=== PATIENT | female | born 1985 | race Caucasian/White ===

== ENCOUNTER 2017-03-30 01:31 | Emergency (ER) | payer OTHER ==
[2017-03-30 01:36] VITALS: BP 127/85
--- NOTE | 2017-03-30 01:47 | ER Document Report ---
ED Hand/Wrist Injury - General Chief Complaint: Hand Pain Stated Complaint: POSSIBLE BROKEN FINGER TRAVEL OUTSIDE OF THE [place] IN LAST 30 DAYS: No - Related Data Allergies/Adverse Reactions: No Known Allergies Allergy (Verified 04/30/14 02:52) Past Medical History - Social History Family History: Arthritis, CAD, CVA, DM, Hyperlipidemia, Hypertension, Thyroid Disfunction Patient has suicidal ideation: No Patient has homicidal ideation: No Pulmonary Medical History: Reports: Hx Bronchitis Renal/ Medical History: Denies: Hx Peritoneal Dialysis Psychiatric Medical History: Reports: Hx Anxiety, Hx Attention Deficit Hyperactivity Disorder, Hx Depression - and anxiety Past Surgical History: Reports: Hx Oral Surgery - TMJ - Immunizations Immunizations up to date: Yes Hx Diphtheria, Pertussis, Tetanus Vaccination: Yes Physical Exam - Vital signs Vitals: Temp Pulse Resp BP Pulse Ox 98.1 F 91 20 127/85 H 97 03/30/17 01:34 03/30/17 01:34 03/30/17 01:34 03/30/17 01:34 03/30/17 01:34 Course - Vital Signs Vital signs: Temp Pulse Resp BP Pulse Ox 98.1 F 91 20 127/85 H 97 03/30/17 01:34 03/30/17 01:34 03/30/17 01:34 03/30/17 01:34 03/30/17 01:34
--- NOTE | 2017-03-30 02:14 | RADIOLOGY REPORT (SQ) ---
EXAM DESCRIPTION: HAND RIGHT 3 VIEWS COMPLETED DATE/TIME: 03/30/2017 1:48 am REASON FOR STUDY: pain . Shut hand in car door. Pain at the 1st and 2nd digits distal phalanges. COMPARISON: Right hand x-ray 02/22/2011. EXAM PARAMETERS: NUMBER OF VIEWS: Three views. TECHNIQUE: AP, lateral and oblique radiographic images acquired of the right hand. LIMITATIONS: None. FINDINGS: MINERALIZATION: Normal. BONES: There is a nondisplaced fracture at the tuft of the 1st distal phalanx. There is a nondispla kelly fracture at the volar plate of the 2nd distal phalanx extending into the interphalangeal joint. Well corticated calcification at the ulnar styloid, probably due to prior trauma or SOFT TISSUES: No significant soft tissue swelling. No radiopaque foreign body. IMPRESSION: Nondisplaced fracture at the tuft of the 1st distal phalanx. Nondisplaced intra-articular fracture at the volar plate of the 2nd distal phalanx. TECHNICAL DOCUMENTATION: JOB ID: [id number] 2010 [employer]- All Rights Reserved
--- NOTE | 2017-03-30 02:19 | ER Document Report ---
Doctor's Note Notes: 03/30/17 02:19 I went to see the patient when she returned from x-ray, she was running down the hallway and out the door into the ambulance bay and never returned.
== END 2017-03-30 01:48 | disposition left against medical advice (07) ==
LOC: ER 01:31
DX: Z53.21 Procedure and treatment not carried out due to patient leaving prior to being seen by health care provider (principal)

== ENCOUNTER 2017-05-19 07:32 | Emergency (ER) | payer OTHER ==
[2017-05-19] MEDS ORDERED: IBUPROFEN 600 MG TABLET PO ONE (07:58)
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
[2017-05-19 09:25] VITALS: BP 130/79
== END 2017-05-19 09:24 | disposition home or self-care (01) ==
LOC: ER 07:32
DX: S00.83XA Contusion of other part of head, initial encounter (principal); F90.9 Attention-deficit hyperactivity disorder, unspecified type; F32.9 Major depressive disorder, single episode, unspecified; R22.0 Localized swelling, mass and lump, head; Y09 Assault by unspecified means
CPT/HCPCS: 70486; 99284

== ENCOUNTER 2018-05-03 08:08 | Emergency (ER) | payer OTHER ==
[2018-05-03 08:16] VITALS: BP 122/76
--- NOTE | 2018-05-03 08:42 | ER Document Report ---
ED General - General Chief Complaint: Cough Stated Complaint: COUGH Time Seen by Provider: 05/03/18 08:23 Notes: 32-year-old female patient emergency department chief complaint of cough and hand redness and swelling. Patient has seen a tool room gear machine operator for she gets recurrent blisters and redness and swelling of her bilateral palms. No involvement of her feet. 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 She now uses nitro gloves and has been using clobetasol cream but does not seem to be helping. There are multiple cracks and breaks in the hands. She was told by the tool room gear machine operator that she has eczema on her hands. She also states that she quit smoking 2 weeks ago and now is coughing a lot. No fever or chills. TRAVEL OUTSIDE OF THE [place] IN LAST 30 DAYS: No - Related Data Allergies/Adverse Reactions: No Known Allergies Allergy (Verified 05/03/18 08:14) Past Medical History - General Information source: Patient - Social History Smoking Status: Former Smoker Chew tobacco use (# tins/day): No Frequency of alcohol use: None Drug Abuse: None Lives with: Family Family History: Arthritis, CAD, CVA, DM, Hyperlipidemia, Hypertension, Thyroid Disfunction Patient has suicidal ideation: No Patient has homicidal ideation: No Pulmonary Medical History: Reports: Hx Bronchitis Renal/ Medical History: Denies: Hx Peritoneal Dialysis Psychiatric Medical History: Reports: Hx Anxiety, Hx Attention Deficit Hyperactivity Disorder, Hx Depression - and anxiety Past Surgical History: Reports: Hx Oral Surgery - TMJ - Immunizations Immunizations up to date: Yes Hx Diphtheria, Pertussis, Tetanus Vaccination: Yes Review of Systems - Review of Systems Notes: Constitutional: denies: Chills, Diaphoresis, Fever, Malaise, Weakness EENT: denies: Eye discharge, Blurred vision, Tearing, Double vision, Nose congestion, Nose discharge, Throat swelling, Mouth pain Cardiovascular: denies: Palpitations, Heart racing, Orthopnea, Dyspnea, Chest pain Respiratory: Complaining of intermittent cough. Intermittent wheeze. No significant shortness of breath. Gastrointestinal: denies: Abdominal pain, Diarrhea, Nausea, Vomiting, Black stools, bright red blood in stool Genitourinary: denies: Burning, Dysuria, Discharge, Frequency, Flank pain, Hematuria Musculoskeletal: denies: Joint pain, Joint swelling, Muscle pain, Muscle stiffness, back pain Hematologic/Lymphatic: denies: Anemia, Easy bleeding, Easy bruising, Blood clots Neurological/Psychological: denies: Confusion, Dementia, Depression, Loss of consciousness Skin: Complaining of redness swelling and blisters on her hands. Physical Exam - Vital signs Vitals: Temp Pulse Resp BP Pulse Ox 97.5 F 75 16 122/76 97 05/03/18 08:15 05/03/18 08:15 05/03/18 08:15 05/03/18 08:15 05/03/18 08:15 Interpretation: Normal - General General appearance: Appears well, Alert - HEENT Head: Normocephalic, Atraumatic Eyes: Normal Pupils: PERRL - Respiratory Respiratory status: No respiratory distress Chest status: Nontender Breath sounds: Normal Chest palpation: Normal - Cardiovascular Rhythm: Regular Heart sounds: Normal auscultation Murmur: No - Abdominal Inspection: Normal Distension: No distension Bowel sounds: Normal Tenderness: Nontender Organomegaly: No organomegaly - Extremities General upper extremity: Normal inspection, Nontender, Normal color, Normal ROM , Normal temperature General lower extremity: Other - The bilateral hands are red. There are multiple areas that are cracked and swollen. There are a few small more scar appearing spots on the palms and fingers. Mild warm to the touch.. No: Rigo' s sign Course - Re-evaluation Re-evalutation: 05/03/18 08:47 At this time patient's lungs are clear. States that she has recently stopped smoking and she is about 2 weeks out. Has had increased coughing since stopping smoking. More than likely this represents return of function of the bronchial ciliary function I have explained this to the patient as well. It is highly possible to that she is developing some contact dermatitis from the use of her gloves. I have advised her to try some vinyl gloves instead of nitrile. To avoid latex as well. The hands are extremely red and swollen. I am going to start her on some mupirocin topical as well as some steroid topical but I am concerned that she could have a superimposed fungal infection as well. I would like to start her on some Diflucan. I have explained to her that we will need to decrease her dose of Abilify while on Diflucan and I have advised her about the risk involved in taking Diflucan especially with regards to liver function studies. In the event she develops any right upper quadrant pain she is to return for liver function studies. She has never had any problems with her liver so I am not doing initial labs on her at this time. Patient accepts the risks involved in this treatment. - Vital Signs Vital signs: Temp Pulse Resp BP Pulse Ox 97.5 F 75 16 122/76 97 05/03/18 08:15 05/03/18 08:15 05/03/18 08:15 05/03/18 08:15 05/03/18 08:15 Discharge - Discharge Clinical Impression: Bronchitis Atopic dermatitis, unspecified Qualifiers: Atopic dermatitis type: unspecified Qualified Code(s): L20.9 - Atopic dermatitis, unspecified Condition: Good Disposition: HOME, SELF-CARE Instructions: Atopic Dermatitis (Eczema) ([facility]), Cough Suppressant & Expectorant Medications Additional Instructions: We are going to try you on some different medications for your hands. Avoid using the nitrile gloves and see if this will help. If you decide to start the Diflucan it will be very important that you decrease your Abilify dose by one half as the Diflucan can affect the way that the Abilify is metabolized. In the event that you are developing any worsening mental health symptoms you should stop the Diflucan and restart your Abilify in your normal dosage. Use the ointments as prescribed. In the event it that your symptoms are getting worse please return. If you develop any right upper quadrant pain please stop the Diflucan and be reevaluated as she may need to have your labs checked. Prescriptions: Triamcinolone Acetonide 1 applic TP QHS 10 Days #1 oint...g. Albuterol Sulfate [Ventolin HFA MDI 18 GM] 2 puff IH Q6H PRN #1 mdi PRN Reason: Fluconazole [Diflucan] 150 mg PO DAILY 14 Days #14 tablet Mupirocin [Bactroban 2% Ointment 22 gm] 1 applic TP BID 10 Days #1 tube Forms: Return to Work
== END 2018-05-03 09:14 | disposition home or self-care (01) ==
LOC: ER 08:08
DX: J40 Bronchitis, not specified as acute or chronic (principal); L20.9 Atopic dermatitis, unspecified; R05 Cough; R06.2 Wheezing; Z87.891 Personal history of nicotine dependence
CPT/HCPCS: 99283

== ENCOUNTER 2018-12-18 18:17 | Emergency (ER) | payer OTHER ==
--- NOTE | 2018-12-18 19:19 | ER Document Report ---
ED General - General Chief Complaint: Flu Symptoms Stated Complaint: FLU LIKE SYMPTOMS Time Seen by Provider: 12/18/18 19:01 Mode of Arrival: Ambulatory Information source: Patient TRAVEL OUTSIDE OF THE [place] IN LAST 30 DAYS: No - HPI Patient complains to provider of: Productive cough, body aches, fever and chills Onset: Other - Cough started 2 days ago. Fever and body aches started today. Onset/Duration: Sudden Quality of pain: Achy Severity: Severe Pain Level: 4 Associated symptoms: Body/muscle aches, Fever Exacerbated by: Denies Relieved by: Denies Similar symptoms previously: No Recently seen / treated by doctor: No Notes: 33-year-old female coming in today with productive cough that started 2 days ago. Today she is got fevers, chills, body aches, and malaise. Some nausea without vomiting. Child is at home coughing and has been treated with antibiotics for possible strep throat. - Related Data Allergies/Adverse Reactions: No Known Allergies Allergy (Verified 12/18/18 18:17) Past Medical History - General Information source: Patient - Social History Smoking Status: Current Every Day Smoker Family History: Reviewed & Not Pertinent, Arthritis, CAD, CVA, DM, Hyperlipidemia, Hypertension, Thyroid Disfunction Patient has suicidal ideation: No Patient has homicidal ideation: No Pulmonary Medical History: Reports: Hx Bronchitis Renal/ Medical History: Denies: Hx Peritoneal Dialysis Psychiatric Medical History: Reports: Hx Anxiety, Hx Attention Deficit Hyperactivity Disorder, Hx Depression - and anxiety Past Surgical History: Reports: Hx Oral Surgery - TMJ - Immunizations Immunizations up to date: Yes Hx Diphtheria, Pertussis, Tetanus Vaccination: Yes Review of Systems - Review of Systems Notes: Constitutional: Positive for fevers, chills, and malaise EENT: No eye redness. No eye pain. No ear pain. No sore throat. Cardiovascular: No chest pain. No palpitations. Respiratory: Positive for productive cough. No shortness of breath. No respiratory distress. Gastrointestinal: No abdominal pain. No nausea, vomiting, or diarrhea. Genitourinary: Atraumatic. No lesions. No pain. No discharge. Musculoskeletal: Atraumatic. No swelling. No deformities. Skin: No rash or lesions. Lymphatic: No swollen lymph nodes. Neurologic: No headache. No syncope. Psychiatric: No suicidal or homicidal ideation. Physical Exam - Vital signs Vitals: Temp Pulse Resp BP Pulse Ox 100.2 F 99 24 H 133/78 H 97 12/18/18 18:25 12/18/18 18:25 12/18/18 18:25 12/18/18 18:25 12/18/18 18:25 - Notes Notes: General: Well-developed, well-nourished. In no acute distress. Non-toxic appearing. Cardiac: Well-perfused. Regular rate and rhythm. No murmurs, rubs, or gallops. Pulmonary: No respiratory distress. No cyanosis. Bilateral lung pinzon are clear to auscultation. Abdominal: Non-distended. Non-rigid. Bowels sounds are present in all four quadrants. No guarding or rebound. HEENT: Head is atraumatic. Conjunctivae not reddened. No tearing. PERRL. EOMI. Orbits atraumatic. No periorbital swelling or erythema. Oropharynx is without erythema, swelling, or exudates. Neck: Supple. No adenopathy. No meningismus. Dermatologic: Warm with good turgor. No rash. Atraumatic. Chest: Atraumatic. No chest wall tenderness to palpation. Musculoskeletal: Moves all extremities well. No range of motion deficits. no muscular or joint tenderness. No paraspinal muscle tenderness. no midline spinal tenderness or step-off. Genitourinary: Examination deferred Neurologic: No gross neurologic deficits. Psychiatric: Normal mood. Course - Re-evaluation Re-evalutation: 12/18/18 19:19 Patient states that she did receive a flu shot this year. 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 She is wants to make sure she is not testing positive for the flu given her exposure. 12/18/18 20:09 Flu test is positive. Will put her on Tamiflu as requested. We will keep her out of the healthcare setting for the next 5 days at least until her fever has abated - Vital Signs Vital signs: Temp Pulse Resp BP Pulse Ox 100.2 F 99 24 H 133/78 H 97 12/18/18 18:25 12/18/18 18:25 12/18/18 18:25 12/18/18 18:25 12/18/18 18:25 Discharge - Discharge Clinical Impression: Influenza A Condition: Good Instructions: Influenza ([facility]) Additional Instructions: Take Tamiflu as directed for full 5 days. Ibuprofen and Tylenol as needed for fevers. Drink plenty fluids. Get plenty rest. We will keep you out of work for at least the next 5 days while you are under therapy. Your work may wish to keep you way until the fevers have resolved. Prescriptions: Oseltamivir Phosphate [Tamiflu 75 mg Capsule] 75 mg PO BID #10 capsule Forms: Return to Work Referrals: primary care doctor, your [Other] - Follow up as needed
[2018-12-18 19:59] LABS: A TYPE INFLUENZA AG POSITIVE (NEGATIVE); B INFLUENZA AG NEGATIVE (NEGATIVE)
[2018-12-18 20:17] VITALS: BP 114/71
== END 2018-12-18 20:25 | disposition home or self-care (01) ==
LOC: ER 18:17
DX: J10.1 Influenza due to other identified influenza virus with other respiratory manifestations (principal); R05 Cough; R50.9 Fever, unspecified; M79.10 Myalgia, unspecified site; R53.81 Other malaise; R11.0 Nausea; F17.200 Nicotine dependence, unspecified, uncomplicated
CPT/HCPCS: 87804; 99283

== ENCOUNTER 2019-09-11 13:58 | Emergency (ER) | payer BC, OTHER ==
[2019-09-11] MEDS ORDERED: ONDANSETRON 4 MG TAB.RAPDIS PO ONE (14:29)
--- NOTE | 2019-09-11 14:30 | ER Document Report ---
ED Medical Screen (RME) - General Chief Complaint: Nausea/Vomiting Stated Complaint: VOMITING Time Seen by Provider: 09/11/19 14:27 Mode of Arrival: Ambulatory Information source: Patient Notes: 33-year-old female presents emergency department with reports of vomiting approximately 5 times today her stomach feels upset she does not feel good. Reports she did receive the flu vaccine this year. She also reports she received a flu vaccine last year and still ended up with the flu. Denies fever. Denies diarrhea. Denies pain with void. I have greeted and performed a rapid initial assessment of this patient. A comprehensive ED assessment and evaluation of the patient, analysis of test results and completion of the medical decision making process will be conducted by additional ED providers. TRAVEL OUTSIDE OF THE [place] IN LAST 30 DAYS: No - Related Data Allergies/Adverse Reactions: No Known Allergies Allergy (Verified 12/18/18 18:17) Past Medical History Pulmonary Medical History: Reports: Hx Bronchitis Renal/ Medical History: Denies: Hx Peritoneal Dialysis Psychiatric Medical History: Reports: Hx Anxiety, Hx Attention Deficit Hyperactivity Disorder, Hx Depression - and anxiety Past Surgical History: Reports: Hx Oral Surgery - TMJ - Immunizations Immunizations up to date: Yes Hx Diphtheria, Pertussis, Tetanus Vaccination: Yes Physical Exam - Vital signs Vitals: Temp Pulse Resp BP Pulse Ox 98.3 F 76 16 131/80 H 97 09/11/19 14:03 09/11/19 14:03 09/11/19 14:03 09/11/19 14:03 09/11/19 14:03 Course - Vital Signs Vital signs: Temp Pulse Resp BP Pulse Ox 98.3 F 76 16 131/80 H 97 09/11/19 14:03 09/11/19 14:03 09/11/19 14:03 09/11/19 14:03 09/11/19 14:03
[2019-09-11 15:39] LABS: ABSOLUTE BASOPHILS # (AUTO) 0.1 10^3/uL (0.0-0.2); ABSOLUTE EOSINOPHILS # (AUTO) 0.1 10^3/uL (0.0-0.6); ABSOLUTE LYMPHOCYTES (AUTO) 3.9 10^3/uL (0.5-4.7); ABSOLUTE MONOCYTES (AUTO) 0.5 10^3/uL (0.1-1.4); ABSOLUTE NEUT (AUTO) 6.8 10^3/uL (1.7-8.2); BASOPHILS % (AUTO) 0.7 % (0-2); EOSINOPHILS % (AUTO) 0.7 % (0-6); HEMATOCRIT 43.4 % (36.0-47.0); HEMOGLOBIN 14.9 g/dL (12.0-15.5); LYMPHOCYTES % (AUTO) 34.5 % (13-45); MEAN CORPUSCULAR HEMOGLOBIN 30.2 pg (27.0-33.4); MEAN CORPUSCULAR HGB CONC 34.4 g/dL (32.0-36.0); MEAN CORPUSCULAR VOLUME 88 fl (80-97); MONOCYTES % (AUTO) 4.5 % (3-13); PLATELET COUNT 416 10^3/uL (150-450); RED BLOOD COUNT 4.94 10^6/uL (3.72-5.28); RED CELL DISTRIBUTION WIDTH 13.4 % (11.5-14.0); SEGMENTED NEUTROPHILS % (AUTO) 59.6 % (42-78); TOTAL CELLS COUNTED % (AUTO) 100 %; WHITE BLOOD COUNT 11.4 10^3/uL (4.0-10.5)
[2019-09-11 15:41] LABS: AMORPHOUS SEDIMENT,URINE TRACE /HPF; APPEARANCE,URINE SLIGHTLY-CLOUDY; BILIRUBIN,URINE NEGATIVE (NEGATIVE); COLOR,URINE YELLOW; GLUCOSE, URINE NEGATIVE (NEGATIVE); KETONES,URINE NEGATIVE (NEGATIVE); LEUKOCYTE ESTERASE,URINE SMALL (NEGATIVE); NITRITE,URINE NEGATIVE (NEGATIVE); PROTEIN,URINE NEGATIVE (NEGATIVE); URINE SPECIFIC GRAVITY 1.018; UROBILINOGEN,URINE NEGATIVE mg/dL (<2.0)
[2019-09-11 15:59] LABS: A TYPE INFLUENZA AG NEGATIVE (NEGATIVE); B INFLUENZA AG NEGATIVE (NEGATIVE)
[2019-09-11 16:00] LABS: ALBUMIN 4.5 g/dL (3.5-5.0); ALKALINE PHOSPHATASE 72 U/L (38-126); ANION GAP 12 (5-19); ASPARTATE AMINO TRANSFERASE 23 U/L (14-36); BILIRUBIN,DIRECT 0.4 mg/dL (0.0-0.4); BILIRUBIN,TOTAL 0.7 mg/dL (0.2-1.3); BLOOD UREA NITROGEN 10 mg/dL (7-20); CARBON DIOXIDE 24 mmol/L (22-30); CHLORIDE 106 mmol/L (98-107); GLUCOSE 89 mg/dL (75-110); POTASSIUM 4.4 mmol/L (3.6-5.0); TOTAL PROTEIN 7.8 g/dL (6.3-8.2)
[2019-09-11] MEDS ORDERED: ONDANSETRON ODT 4 MG TAB (6 TAB/ER DISP) PO PRN (20:34)
--- NOTE | 2019-09-11 20:34 | ER Document Report ---
ED GI/ - General Chief Complaint: Nausea/Vomiting Stated Complaint: VOMITING Time Seen by Provider: 09/11/19 14:27 Mode of Arrival: Ambulatory Notes: Patient is a 33-year-old female who presents emergency department with a chief complaint of nausea. Patient reports today she woke up and had significant nausea and generalized abdominal aching. Patient reports she did vomit 5 times at home. Patient reports she just felt like her stomach was upset. Patient reports she does not have any sick contacts but does work at a [employer] so she is unsure she has been recently exposed to something. Patient denies di arrhea. Patient denies fever. Patient reports she did get the flu vaccine but is concerned that she potentially has influenza. Patient denies sore throat, ear pain, runny nose or cough. Patient denies rash. Patient denies recent outside of country travel. TRAVEL OUTSIDE OF THE [place] IN LAST 30 DAYS: No - Related Data Allergies/Adverse Reactions: No Known Allergies Allergy (Verified 12/18/18 18:17) Past Medical History - General Information source: Patient - Social History Smoking Status: Current Every Day Smoker Frequency of alcohol use: None Drug Abuse: None Lives with: Family Family History: Reviewed & Not Pertinent, Arthritis, CAD, CVA, DM, Hyperlipidemia, Hypertension, Thyroid Disfunction Patient has suicidal ideation: No Patient has homicidal ideation: No - Past Medical History Cardiac Medical History: Reports: None Pulmonary Medical History: Reports: Hx Asthma, Hx Bronchitis EENT Medical History: Reports: None Neurological Medical History: Reports: None Endocrine Medical History: Reports: None Renal/ Medical History: Reports: None. Denies: Hx Peritoneal Dialysis Malignancy Medical History: Reports: None GI Medical History: Reports: None Musculoskeletal Medical History: Reports None Skin Medical History: Reports None Psychiatric Medical History: Reports: Hx Anxiety, Hx Attention Deficit Hyperactivity Disorder, Hx Depression - and anxiety Traumatic Medical History: Reports: None Infectious Medical History: Reports: None Past Surgical History: Reports: Hx Oral Surgery - TMJ - Immunizations Immunizations up to date: Yes Hx Diphtheria, Pertussis, Tetanus Vaccination: Yes Review of Systems - Review of Systems Constitutional: See HPI EENT: No symptoms reported Cardiovascular: No symptoms reported Respiratory: No symptoms reported Gastrointestinal: See HPI Genitourinary: No symptoms reported Female Genitourinary: No symptoms reported Musculoskeletal: No symptoms reported Skin: No symptoms reported Hematologic/Lymphatic: No symptoms reported Neurological/Psychological: No symptoms reported Physical Exam - Vital signs Vitals: Temp Pulse Resp BP Pulse Ox 98.3 F 76 16 131/80 H 97 09/11/19 14:03 09/11/19 14:03 09/11/19 14:03 09/11/19 14:03 09/11/19 14:03 Interpretation: Normal - Notes Notes: GENERAL: Well-appearing, well-nourished and in no acute distress. HEAD: Atraumatic, normocephalic. EYES: Pupils equal round and reactive to light, extraocular movements intact, sclera anicteric, conjunctiva are normal. ENT: NJares patent, oropharynx clear without exudates. Moist mucous membranes. NECK: Normal range of motion, supple without lymphadenopathy or JVD. LUNGS: Breath sounds clear to auscultation bilaterally and equal. No wheezes rales or rhonchi. HEART: Regular rate and rhythm without murmurs, rubs or gallops. ABDOMEN: Soft, nontender, normoactive bowel sounds. No guarding, no rebound. No masses appreciated. BACK: No cervical, thoracic, lumbar midline tenderness. No saddle anesthesia, normal distal neurovascular exam. GENITOURINARY: Deferred. EXTREMITIES: Normal range of motion, no pitting or edema. No clubbing or cyanosis. NEUROLOGICAL: Cranial nerves II through XII grossly intact. Normal speech, normal gait. PSYCH: Normal mood, normal affect. SKIN: Warm, Dry, normal turgor, no rashes or lesions noted. Course - Re-evaluation Re-evalutation: 09/11/19 20:37 Patient has been tolerating sips of fluids since being here in the emergency dep artment and after receiving the Zofran has not vomited. I did offer the patient a liter of IV hydration fluids but states that she feels like she is okay to go home. Patient's lab work was reassuring and did not show any significant concern at this time. Patient sitting upright on stretcher and in no acute distress. We will give the patient antiemetics and strict return precautions. - Vital Signs Vital signs: Temp Pulse Resp BP Pulse Ox 98.3 F 76 16 131/80 H 97 09/11/19 14:03 09/11/19 14:03 09/11/19 14:03 09/11/19 14:03 09/11/19 14:03 - Laboratory Result Diagrams: 09/11/19 15:11 09/11/19 15:11 Laboratory results interpreted by me: 09/11/19 09/11/19 15:11 15:11 WBC 11.4 H Ur Leukocyte Esterase SMALL H Urine Ascorbic Acid 40 H 09/11/19 20:37 Patient's lab work did not show significant leukocytosis, anemia, alteration electrolytes or kidney function. Patient's liver enzymes normal. Patient does not have a urinary tract infection. Laboratory 09/11/19 09/11/19 09/11/19 15:11 15:11 15:11 WBC 11.4 H RBC 4.94 Hgb 14.9 Hct 43.4 MCV 88 MCH 30.2 MCHC 34.4 RDW 13.4 Plt Count 416 Lymph % (Auto) 34.5 Patrick % (Auto) 4.5 Eos % (Auto) 0.7 Baso % (Auto) 0.7 Absolute Neuts (auto) 6.8 Absolute Lymphs (auto) 3.9 Absolute Monos (auto) 0.5 Absolute Eos (auto) 0.1 Absolute Basos (auto) 0.1 Seg Neutrophils % 59.6 Sodium 141.6 Potassium 4.4 Chloride 106 Carbon Dioxide 24 Anion Gap 12 BUN 10 Creatinine 0.56 Est GFR ( Amer) > 60 Est GFR (MDRD) Non-Af > 60 Glucose 89 Calcium 10.0 Total Bilirubin 0.7 Direct Bilirubin 0.4 Neonat Total Bilirubin Not Reportable Neonat Direct Bilirubin Not Reportable Neonat Indirect Bili Not Reportable AST 23 ALT 16 Alkaline Phosphatase 72 Total Protein 7.8 Albumin 4.5 Urine Color YELLOW Urine Appearance SLIGHTLY-CLOUDY Urine pH 6.0 Ur Specific [place] 1.018 Urine Protein NEGATIVE Urine Glucose (UA) NEGATIVE Urine Ketones NEGATIVE Urine Blood NEGATIVE Urine Nitrite NEGATIVE Urine Bilirubin NEGATIVE Urine Urobilinogen NEGATIVE Ur Leukocyte Esterase SMALL H Urine WBC (Auto) 7 Urine RBC (Auto) 2 Squamous Epi Cells Auto 7 Amorphous Sediment Auto TRACE Urine Mucus (Auto) RARE Urine Ascorbic Acid 40 H Urine HCG, Qual NEGATIVE Influenza A (Rapid) Influenza B (Rapid) 09/11/19 15:11 WBC RBC Hgb Hct MCV MCH MCHC RDW Plt Count Lymph % (Auto) Patrick % (Auto) Eos % (Auto) Baso % (Auto) Absolute Neuts (auto) Absolute Lymphs (auto) Absolute Monos (auto) Absolute Eos (auto) Absolute Basos (auto) Seg Neutrophils % Sodium Potassium Chloride Carbon Dioxide Anion Gap BUN Creatinine Est GFR ( Amer) Est GFR (MDRD) Non-Af Glucose Calcium Total Bilirubin Direct Bilirubin Neonat Total Bilirubin Neonat Direct Bilirubin Neonat Indirect Bili AST ALT Alkaline Phosphatase Total Protein Albumin Urine Color Urine Appearance Urine pH Ur Specific [place] Urine Protein Urine Glucose (UA) Urine Ketones Urine Blood Urine Nitrite Urine Bilirubin Urine Urobilinogen Ur Leukocyte Esterase Urine WBC (Auto) Urine RBC (Auto) Squamous Epi Cells Auto Amorphous Sediment Auto Urine Mucus (Auto) Urine Ascorbic Acid Urine HCG, Qual Influenza A (Rapid) NEGATIVE Influenza B (Rapid) NEGATIVE Discharge - Discharge Clinical Impression: Nausea & vomiting Qualifiers: Vomiting type: unspecified Vomiting Intractability: non-intractable Qualified Code(s): R11.2 - Nausea with vomiting, unspecified Condition: Stable Disposition: HOME, SELF-CARE Additional Instructions: *Today you are seen in the emergency department for nausea and vomiting. Since receiving the anti-nausea medication called Lucreciafran you have not had any episodes of vomiting although you do still feel nauseous. We will give you an anti- nausea medicine to go home with. Please focus on hydration over the next 24 hours. Take Tylenol and ibuprofen as needed for pain or fever. Your blood work was reassuring and did not show any signs of infection, alteration in your electrolytes or significant dehydration. Sip clear fluids. Rest. If the vomiting worsens, if you have any bleeding noted, black stools, large amounts of diarrhea or fever please return to the emergency department. Nausea or Vomiting, Nonspecific Vomiting (or nausea without vomiting) can be caused by many different pr oblems. Of course, it can mean that something's wrong with the stomach, such as "stomach flu," ulcers, or inflammation. But it can also be a symptom of a problem that has nothing to do with the stomach or intestines. Vomiting is common with severe headaches, earaches, and tonsillitis. We see it with pneumonia or heart attacks. Drugs can cause nausea. Many abdominal problems cause vomiting; for example, gallstones, kidney stones, pancreatitis, and intestinal obstruction (blocked bowels). In most cases, curing the vomiting depends on fixing the problem that caused it. For temporary relief, we may use an anti-nausea medicine. For home use, we can prescribe suppositories, chewable pills, pills that dissolve in the mouth, or liquid anti-nausea drugs. If the vomiting seems to be caused by a problem in the stomach, acid-suppressing drugs may be prescribed as well. It's important to avoid dehydration. Sip clear liquids. Take increasing amounts of fluid over the first 24 hours. Then start small amounts of bland foods (such as dry toast, applesauce, mashed potato). Avoid aspirin, tobacco, and alcohol. Gradually resume your usual diet. If the vomiting worsens, if the problem that's making you vomit worsens, or if there's evidence of bleeding in the stomach (such as black, tarry stool, bloody or black vomit, or lightheadedness), you should return immediately. Call your doctor if you aren't improved in 24 to 36 hours. Forms: Return to Work
[2019-09-11 20:40] VITALS: BP 121/75
== END 2019-09-11 20:47 | disposition home or self-care (01) ==
LOC: ER 13:58
DX: R11.2 Nausea with vomiting, unspecified (principal); R10.84 Generalized abdominal pain; F17.200 Nicotine dependence, unspecified, uncomplicated
CPT/HCPCS: 99284; 36415; 85025; 81025; 80053; 81001; 87804; S0119